=== PATIENT | female | born 1960 | race Caucasian/White ===

== ENCOUNTER 2019-11-23 18:24 | Inpatient (IN) | payer BC, OTHER ==
[~2019-11-23] VITALS: Ht 162.6 cm; Wt 59.4 kg
[2019-11-23] MEDS ORDERED: KETOROLAC TROMETHAMINE 30 MG/ML VIAL IV STA (19:21)
[2019-11-23] MEDS ORDERED: ONDANSETRON HCL INJ 2MG/ML 2ML 2 MG/ML VIAL IV STA (19:22)
[2019-11-23 19:48] LABS: BASOPHILS % 0.2 % (0.0-1.0); HEMATOCRIT 36.5 % (34.2-44.1); HEMOGLOBIN 12.3 g/dL (12.0-16.0); LYMPHOCYTES # (AUTO) 1.1 (1.0-3.2); LYMPHOCYTES % 7.4 % (18.0-39.1); MEAN CORPUSCULAR HEMOGLOBIN 29.9 pg (28-32); MEAN CORPUSCULAR HGB CONC 33.7 g/dL (31-35); MEAN CORPUSCULAR VOLUME 88.6 fL (81-99); MONOCYTES # (AUTO) 0.5 (0.2-0.8); MONOCYTES % 3.1 % (4.4-11.3); NEUTROPHILS # (AUTO) 13.1 (2.1-6.9); PLATELET COUNT 224 x10e3/uL (140-360); RED BLOOD COUNT 4.12 x10e6/uL (3.6-5.1); RED CELL DISTRIBUTION WIDTH 11.8 % (11.7-14.4)
[2019-11-23 19:57] LABS: INR 0.92; PARTIAL THROMBOPLASTIN TIME 25.2 seconds (23.8-35.5); PROTHROMBIN TIME 12.9 seconds (11.9-14.5)
[2019-11-23 19:58] LABS: CLARITY,URINE SL CLOUDY (CLEAR); COLOR,URINE YELLOW (YELLOW); KETONES,URINE 2+ (NEGATIVE); LEUKOCYTE ESTERASE ,URINE NEGATIVE (NEGATIVE); NITRITE,URINE NEGATIVE (NEGATIVE); PROTEIN,URINE DIPSTICK 1+ (NEGATIVE)
[2019-11-23 19:59] LABS: BILIRUBIN,URINE NEGATIVE (NEGATIVE); URINE UROBILINOGEN 0.2 mg/dL (0.2 - 1)
[2019-11-23 20:06] LABS: ALANINE AMINOTRANSFERASE 13 IU/L (0-55); ALBUMIN 4.5 g/dL (3.5-5.0); ALBUMIN/GLOBULIN RATIO 1.4 (0.8-2.0); ALKALINE PHOSPHATASE 68 IU/L (40-150); ANION GAP 19.1 mmol/L (8-16); BLOOD UREA NITROGEN 13 mg/dL (7-26); BUN/CREATININE RATIO 14 (6-25); CARBON DIOXIDE 21 mmol/L (22-29); CHLORIDE 103 mmol/L (98-107); CREATINE KINASE 74 IU/L (29-168); CREATININE, SERUM 0.91 mg/dL (0.57-1.11); EST GLOMERULAR FILTRATION RATE > 60 ML/MIN (60-); GLUCOSE 138 mg/dL (74-118); POTASSIUM 4.1 mmol/L (3.5-5.1); SODIUM 139 mmol/L (136-145)
[2019-11-23 20:20] LABS: BACTERIA,URINE MANY /HPF
[2019-11-23 20:21] LABS: EPITHELIAL CELLS,URINE FEW /LPF
--- NOTE | 2019-11-23 21:01 | Diagnostic Imaging Report ---
EXAMINATION: CT of the abdomen and pelvis without contrast. TECHNIQUE: Spiral CT images of the abdomen and pelvis were performed from the lung bases to the lesser trochanters. No intravenous contrast was given per renal stone protocol. Coronal and sagittal reformatted images were obtained. COMPARISON: None. CLINICAL HISTORY:Bilateral kidney stones, right flank pain for several months DISCUSSION: ABSENCE OF INTRAVENOUS CONTRAST DECREASES SENSITIVITY FOR DETECTION OF FOCAL LESIONS AND VASCULAR PATHOLOGY. ABDOMEN/PELVIS: LOWER THORAX: Lung bases are clear. Bilateral breast implants are partially visualized. HEPATOBILIARY: 7 mm fluid density simple cyst in hepatic segment VIII at the dome (series 3, image 12). 9 mm fluid density simple cyst in hepatic segment (series 3, image 43). No intra or extrahepatic biliary ductal dilation. GALLBLADDER: No radio-opaque stones or sludge. No wall thickening. SPLEEN: No splenomegaly. PANCREAS: No focal masses or ductal dilatation. ADRENALS: No adrenal nodules. KIDNEYS/URETERS: 6-7 mm obstructing calculus in the right UVJ (series 3, image 142), results in moderate right hydroureter, mild periureteral stranding, marked right hydronephrosis and associated mild perinephric stranding. Punctate nonobstructing calculus in the right inferior pole (series 3, image 57). 3-4 mm nonobstructing calculi in the left inferior pole (series 3, image 59). No left ureteral calculi, hydronephrosis or obstruction. No contour abnormalities. PELVIC ORGANS/BLADDER: No bladder calculi or focal lesions. The uterus is unremarkable. No adnexal masses. PERITONEUM/RETROPERITONEUM: No free air or fluid. LYMPH NODES: No intra-abdominal,retroperitoneal, pelvic or inguinal lymphadenopathy. VESSELS: Atherosclerotic calcification of the distal abdominal aorta. GI TRACT: No bowel dilation or evidence of obstruction. No pericolonic inflammatory changes. Appendix is well identified and normal in caliber. Stomach is unremarkable. BONES AND SOFT TISSUES: No aggressive lytic or suspicious focal sclerotic lesions. 5 mm nonaggressive-appearing focal sclerotic lesion in the right acetabulum (series 3, image 129), likely represents a bone island. Soft tissues are grossly unremarkable. IMPRESSION: 1.6-7 mm obstructing calculus in the right UVJ (series 3, image 142), results in moderate right hydroureter, mild periureteral stranding, marked right hydronephrosis and associated mild perinephric stranding. 2. Bilateral nonobstructing calculi, as described. 3. Simple hepatic cysts, which require no further follow-up. Signed by: Dr. Emil Rubi M.D. on 11/23/2019 8:57 PM
[2019-11-23] MEDS ORDERED: CEFTRIAXONE SOD 1 GM/NS 50 ML 50 ML IV ONE (21:45)
[2019-11-23] MEDS ORDERED: [UNRECOGNIZED DRUG - OTHER] IV ONE (21:52)
[2019-11-23] MEDS ORDERED: CEFEPIME IV ONE (21:52)
[2019-11-23] MEDS ORDERED: CEFEPIME HCL 2 GM VIAL ONE (21:52)
[2019-11-23] MEDS ORDERED: CEFTRIAXONE SOD 1 GM VIAL ONE (21:54)
[2019-11-23] MEDS ORDERED: CEFTRIAXONE SOD 1 GM VIAL IV SCH (22:00)
[2019-11-23] MEDS ORDERED: CEFTRIAXONE SOD 1 GM VIAL IM ONE (22:00)
--- NOTE | 2019-11-23 22:10 | Emergency Department Note ---
History of Present Illnes History of Present Illness Chief Complaint: Genitourinary History of Present Illness This is a 59 year old female IGHT FLANK PAIN THAT RADIATES ACROSS BACK AND TO ABD SINCE THIS MORNING PROGRESSIVELY GETTING WORSE TOLD BY DR JONES SHE HAS A KIDNEY STONE THAT WOULD NEED TO BE BROKEN UP C/O DYSURIA AND NAUSEA AND DRY HEAVES . Historian: Patient Arrival Mode: Car Onset (how long ago): hour(s) (9) Location: RIGHT FLANK Quality: PAIN Radiation: Reports back, Reports abdomen Severity: moderate Onset quality: sudden Duration (how long): hour(s) (9) Timing of current episode: constant Progression: waxing and waning Chronicity: new Context: Denies recent illness, Denies recent surgery Relieving factors: none Exacerbating factors: none Associated symptoms: Reports nausea/vomiting Past Medical/Family History Physician Review I have reviewed the patient's past medical and family history. Any updates have been documented here. Past Medical History Recent Fever: No Clinical Suspicion of Infectio: No New/Unexplained Change in Ment: No Past Medical History: Hypertension, Kidney Stones, Anxiety, Hyperlipedemia Other Surgery: BREAST IMPLANT ROTATOR CUFF Social History Smoking Cessation: Never Smoker Alcohol Use: None Any Illegal Drug Use: No TB Exposure/Symptoms: No Physically hurt or threatened: No Other Last Tetanus: UTD Any Pre-Existing Lines (PICC,: No Is patient up to date on immun: Yes Last Flu: UTD Last Pneumovax: DENIES Review of Systems Review of Systems Constitutional: Reports no symptoms EENTM: Reports no symptoms Cardiovascular: Reports no symptoms Respiratory: Reports no symptoms Gastrointestinal: Reports as per HPI Genitourinary: Reports as per HPI Musculoskeletal: Reports no symptoms Integumentary: Reports no symptoms Neurological: Reports no symptoms Psychological: Reports no symptoms Endocrine: Reports no symptoms Hematological/Lymphatic: Reports no symptoms Physical Exam Related Data Allergies: Coded Allergies: No Known Allergies (Unverified , 11/23/19) Triage Vital Signs Vital Signs Date Time Temp Pulse Resp B/P (MAP) Pulse Ox O2 Delivery O2 Flow Rate FiO2 11/23/19 19:07 97.3 54 18 180/88 100 Vital signs reviewed: Yes Physical Exam CONSTITUTIONAL Constitutional: Present well-developed, Present well-nourished, Present distressed (MODEREATE) HENT HENT: Present normocephalic, Present atraumatic, Present oropharynx clear/moist, Present nose normal HENT L/R: Present left ext ear normal, Present right ext ear normal EYES Eyes: Reports PERRL, Reports conjunctivae normal NECK Neck: Present ROM normal PULMONARY Pulmonary: Present effort normal, Present breath sounds normal CARDIOVASCULAR Cardiovascular: Present regular rhythm, Present heart sounds normal, Present capillary refill normal, Present bradycardia (58) GASTROINTESTINAL Abdominal: Present soft, Present nontender, Present bowel sounds normal, Present right CVA tenderness (MODERATE) GENITOURINARY Genitourinary: Present exam deferred SKIN Skin: Present warm, Present dry MUSCULOSKELETAL Musculoskeletal: Present ROM normal NEUROLOGICAL Neurological: Present alert, Present oriented x 3, Present no gross motor or sensory deficits PSYCHOLOGICAL Psychological: Present mood/affect normal, Present judgement normal Results Laboratory Result Diagram: 11/23/19184311/23/191843 Laboratory Laboratory Tests Test 11/23/19 18:44 White Blood Count 14.68 x10e3/uL (4.8-10.8) Red Blood Count 4.12 x10e6/uL (3.6-5.1) Hemoglobin 12.3 g/dL (12.0-16.0) Hematocrit 36.5 % (34.2-44.1) Mean Corpuscular Volume 88.6 fL (81-99) Mean Corpuscular Hemoglobin 29.9 pg (28-32) Mean Corpuscular Hemoglobin Concent 33.7 g/dL (31-35) Red Cell Distribution Width 11.8 % (11.7-14.4) Platelet Count 224 x10e3/uL (140-360) Neutrophils (%) (Auto) 89.0 % (38.7-80.0) Lymphocytes (%) (Auto) 7.4 % (18.0-39.1) Monocytes (%) (Auto) 3.1 % (4.4-11.3) Eosinophils (%) (Auto) 0.0 % (0.0-6.0) Basophils (%) (Auto) 0.2 % (0.0-1.0) Neutrophils # (Auto) 13.1 (2.1-6.9) Lymphocytes # (Auto) 1.1 (1.0-3.2) Monocytes # (Auto) 0.5 (0.2-0.8) Eosinophils # (Auto) 0.0 (0.0-0.4) Basophils # (Auto) 0.0 (0.0-0.1) Absolute Immature Granulocyte (auto 0.04 x10e3/uL (0-0.1) Prothrombin Time 12.9 seconds (11.9-14.5) Prothromb Time International Ratio 0.92 Activated Partial Thromboplast Time 25.2 seconds (23.8-35.5) Urine Color Yellow (YELLOW) Urine Clarity Sl cloudy (CLEAR) Urine pH 7.5 (5 - 7) Urine Specific [place] 1.025 (1.010-1.025) Urine Protein 1+ (NEGATIVE) Urine Glucose (UA) Negative (NEGATIVE) Urine Ketones 2+ (NEGATIVE) Urine Blood Trace (NEGATIVE) Urine Nitrite Negative (NEGATIVE) Urine Bilirubin Negative (NEGATIVE) Urine Urobilinogen 0.2 mg/dL (0.2 - 1) Urine Leukocyte Esterase Negative (NEGATIVE) Urine RBC 6-10 /HPF (0-5) Urine WBC 11-20 /HPF (0-5) Urine Epithelial Cells Few /LPF (NONE) Urine Bacteria Many /HPF (NONE) Sodium Level 139 mmol/L (136-145) Potassium Level 4.1 mmol/L (3.5-5.1) Chloride Level 103 mmol/L (98-107) Carbon Dioxide Level 21 mmol/L (22-29) Anion Gap 19.1 mmol/L (8-16) Blood Urea Nitrogen 13 mg/dL (7-26) Creatinine 0.91 mg/dL (0.57-1.11) Estimat Glomerular Filtration Rate > 60 ML/MIN (60-) BUN/Creatinine Ratio 14 (6-25) Glucose Level 138 mg/dL (74-118) Calcium Level 10.0 mg/dL (8.4-10.2) Total Bilirubin 0.5 mg/dL (0.2-1.2) Aspartate Amino Transf (AST/SGOT) 17 IU/L (5-34) Alanine Aminotransferase (ALT/SGPT) 13 IU/L (0-55) Alkaline Phosphatase 68 IU/L (40-150) Creatine Kinase 74 IU/L (29-168) Creatine Kinase MB 0.70 ng/mL (0-5.0) Troponin I 0.009 ng/mL (0-0.300) Total Protein 7.7 g/dL (6.5-8.1) Albumin 4.5 g/dL (3.5-5.0) Globulin 3.2 g/dL (2.3-3.5) Albumin/Globulin Ratio 1.4 (0.8-2.0) Lab results reviewed: Yes Imaging Imaging results reviewed: Yes Impressions EXAMINATION: CT of the abdomen and pelvis without contrast. TECHNIQUE: Spiral CT images of the abdomen and pelvis were performed from the lung bases to the lesser trochanters. No intravenous contrast was given per renal stone protocol. Coronal and sagittal reformatted images were obtained. COMPARISON: None. CLINICAL HISTORY:Bilateral kidney stones, right flank pain for several months DISCUSSION: ABSENCE OF INTRAVENOUS CONTRAST DECREASES SENSITIVITY FOR DETECTION OF FOCAL LESIONS AND VASCULAR PATHOLOGY. ABDOMEN/PELVIS: LOWER THORAX: Lung bases are clear. Bilateral breast implants are partially visualized. HEPATOBILIARY: 7 mm fluid density simple cyst in hepatic segment VIII at the dome (series 3, image 12). 9 mm fluid density simple cyst in hepatic segment (series 3, image 43). No intra or extrahepatic biliary ductal dilation. GALLBLADDER: No radio-opaque stones or sludge. No wall thickening. SPLEEN: No splenomegaly. PANCREAS: No focal masses or ductal dilatation. ADRENALS: No adrenal nodules. KIDNEYS/URETERS: 6-7 mm obstructing calculus in the right UVJ (series 3, image 142), results in moderate right hydroureter, mild periureteral stranding, marked right hydronephrosis and associated mild perinephric stranding. Punctate nonobstructing calculus in the right inferior pole (series 3, image 57). 3-4 mm nonobstructing calculi in the left inferior pole (series 3, image 59). No left ureteral calculi, hydronephrosis or obstruction. No contour abnormalities. PELVIC ORGANS/BLADDER: No bladder calculi or focal lesions. The uterus is unremarkable. No adnexal masses. PERITONEUM/RETROPERITONEUM: No free air or fluid. LYMPH NODES: No intra-abdominal,retroperitoneal, pelvic or inguinal lymphadenopathy. VESSELS: Atherosclerotic calcification of the distal abdominal aorta. GI TRACT: No bowel dilation or evidence of obstruction. No pericolonic inflammatory changes. Appendix is well identified and normal in caliber. Stomach is unremarkable. BONES AND SOFT TISSUES: No aggressive lytic or suspicious focal sclerotic lesions. 5 mm nonaggressive-appearing focal sclerotic lesion in the right acetabulum (series 3, image 129), likely represents a bone island. Soft tissues are grossly unremarkable. IMPRESSION: 1.6-7 mm obstructing calculus in the right UVJ (series 3, image 142), results in moderate right hydroureter, mild periureteral stranding, marked right hydronephrosis and associated mild perinephric stranding. 2. Bilateral nonobstructing calculi, as described. 3. Simple hepatic cysts, which require no further follow-up. Signed by: Dr. Josselin Rubi M.D. on 11/23/2019 8:57 PM Dictated By: JOSSELIN RUBI MD 56 Transcribed By: ABA on 11/23/192056 COPY TO: LISETTE CALDWELL MD~ Assessment & Plan Medical Decision Making MDM Patient with right flank pain history of kidney stones. CBC, CMP, UA, CT abdomen and pelvis ordered to eval for UTI, ureterolithiasis, pyelonephritis, obstructive uropathy, renal insufficiency, electrolyte abnormality Patient found to have a 67 mm stone in the distal right UVJ with obstruction causing moderate [place] patient was found to have UTI. Rocephin 1 g IV ordered. Toradol 30 mg IV ordered. About I spoke with Dr. Palacios and Dr. Jones patient be admitted inpatient nothing by mouth after midnight started on Rocephin. Assessment & Plan Final Impression: (1) Ureterolithiasis (2) Hydronephrosis (3) UTI (urinary tract infection) Depart Disposition: ADMITTED Last Vital Signs Date Time Temp Pulse Resp B/P (MAP) Pulse Ox O2 Delivery O2 Flow Rate FiO2 11/23/19 21:45 97.3 89 18 174/99 97 Medications in the ED Ketorolac Tromethamine 30 mg ONCE STAT IV Last administered on 11/23/19at 19:54; Admin Dose 30 MG; Start 11/23/19 at 19:21; Stop 11/23/19 at 19:42; Status DC Ondansetron HCl 4 mg NOW STAT IV Last administered on 11/23/19at 19:54; Admin Dose 4 MG; Start 11/23/19 at 19:22; Stop 11/23/19 at 19:42; Status DC Ceftriaxone Sodium 50 ml @ 100 mls/hr ONCE ONCE IV ; Start 11/23/19 at 21:45; Stop 11/23/19 at 21:52; Status DC Cefepime HCl STK-MED ONCE .ROUTE ; Start 11/23/19 at 21:52; Stop 11/23/19 at 21:46; Status DC Cefepime HCl 0 ml @ ud STK-MED ONCE IV ; Start 11/23/19 at 21:52; Stop 11/23/19 at 21:46; Status DC Ceftriaxone Sodium 1 gm STK-MED ONCE .ROUTE ; Start 11/23/19 at 21:54; Stop 11/23/19 at 21:48; Status DC Ceftriaxone Sodium 1 gm ONCE ONCE IM ; Start 11/23/19 at 22:00; Stop 11/23/19 at 21:54; Status DC Ceftriaxone Sodium 1 gm ONCE IV Last administered on 11/23/19at 21:54; Admin Dose 1 GM; Start 11/23/19 at 22:00; Stop 11/30/19 at 21:59; Status LISETTE MIGUEL MD Nov 23, 2019 22:10
[2019-11-24] VITALS (9 sets, daily range): BP systolic 115–150; BP diastolic 61–72
[2019-11-24] MEDS ORDERED: HYDROMORPHONE 1MG/1ML INJ IV PRN
[2019-11-24] MEDS ORDERED: ONDANSETRON HCL INJ 2MG/ML 2ML 2 MG/ML VIAL IV PRN
[2019-11-24] MEDS: SODIUM CHLORIDE 0.9% 1000ML 1,000 ML IV SCH ×5 (00:40→18:50)
[2019-11-24] MEDS ORDERED: MULTIVITAMINS1 EAC7 PO (01:42)
[2019-11-24] MEDS ORDERED: [UNRECOGNIZED DRUG - OTHER] PO (01:42)
[2019-11-24] MEDS ORDERED: TYLENOL WITH C1 EACH PO (01:42)
[2019-11-24] MEDS ORDERED: APPLE CIDER VI300 MG PO (01:42)
[2019-11-24] MEDS ORDERED: SERTRALINE HCL50 MG PO (01:42)
[2019-11-24] MEDS ORDERED: ALPRAZOLAM0.5 M1 PO (01:42)
[2019-11-24] MEDS ORDERED: PEPCID AC10 MG PO (01:42)
[2019-11-24] MEDS ORDERED: ZOFRAN4 MG PO (01:42)
--- NOTE | 2019-11-24 07:48 | NUR ---
ASSUMED CARE. AAOX3. ACYANOTIC. RESTING IN BED. NO DISTRESS NOTED. CALL LIGHT IN REACH. SIDE RAILS UP X2. BED LOW.
[2019-11-24 08:32] LABS: BASOPHILS % 0.2 % (0.0-1.0); EOSINOPHILS % 0.2 % (0.0-6.0); HEMATOCRIT 32.5 % (34.2-44.1); HEMOGLOBIN 10.8 g/dL (12.0-16.0); LYMPHOCYTES # (AUTO) 1.8 (1.0-3.2); LYMPHOCYTES % 21.8 % (18.0-39.1); MEAN CORPUSCULAR HEMOGLOBIN 29.3 pg (28-32); MEAN CORPUSCULAR HGB CONC 33.2 g/dL (31-35); MEAN CORPUSCULAR VOLUME 88.3 fL (81-99); MONOCYTES # (AUTO) 0.6 (0.2-0.8); NEUTROPHILS # (AUTO) 5.6 (2.1-6.9); NEUTROPHILS % 69.6 % (38.7-80.0); PLATELET COUNT 176 x10e3/uL (140-360); RED BLOOD COUNT 3.68 x10e6/uL (3.6-5.1); RED CELL DISTRIBUTION WIDTH 12.1 % (11.7-14.4)
[2019-11-24 08:52] LABS: ALANINE AMINOTRANSFERASE 10 IU/L (0-55); ALBUMIN 3.7 g/dL (3.5-5.0); ALBUMIN/GLOBULIN RATIO 1.3 (0.8-2.0); ALKALINE PHOSPHATASE 60 IU/L (40-150); ANION GAP 13.8 mmol/L (8-16); BLOOD UREA NITROGEN 13 mg/dL (7-26); BUN/CREATININE RATIO 16 (6-25); CALCIUM 9.2 mg/dL (8.4-10.2); CARBON DIOXIDE 23 mmol/L (22-29); CHLORIDE 109 mmol/L (98-107); CREATININE, SERUM 0.81 mg/dL (0.57-1.11); EST GLOMERULAR FILTRATION RATE > 60 ML/MIN (60-); GLUCOSE 147 mg/dL (74-118); POTASSIUM 3.8 mmol/L (3.5-5.1); SODIUM 142 mmol/L (136-145)
[2019-11-24] MEDS ORDERED: BISACODYL 10 MG SUPP PR PRN (11:00)
[2019-11-24] MEDS: POLYETHYLENE GLYCOL 3350 17 GM PACK PO SCH ×2 (11:41→17:23)
[2019-11-24] MEDS: DOCUSATE SODIUM 100 MG CAP PO SCH ×2 (11:41→17:23)
--- NOTE | 2019-11-24 18:46 | NUR ---
WALKING ROUNDS PERFORMED, RECEIVED PT LAYING SEMI FOWLERS IN BED, AAOX3, RR EVEN AND NON-LABORED, ON ROOM AIR. NO S/SX OF DISTRESS NOTED. LEFT PT LAYING SEMI FOWLERS IN BED, BED IN LOW LOCKED POSITION, SIDE RAILS UPX2, CALL LIGHT AND PHONE WITHIN REACH.
[2019-11-24] MEDS: CEFTRIAXONE SOD 1 GM/NS 50 ML 50 ML IV SCH (20:22)
--- NOTE | 2019-11-24 23:59 | NUR ---
NOTIFIED RESPIRATORY OF NEED FOR EKG.
[2019-11-25] VITALS (8 sets, daily range): BP systolic 136–170; BP diastolic 70–85
[2019-11-25] MEDS: SODIUM CHLORIDE 0.9% 1000ML 1,000 ML IV SCH ×2 (03:47→15:29)
[2019-11-25 05:41] LABS: BASOPHILS % 0.3 % (0.0-1.0); EOSINOPHILS # (AUTO) 0.1 (0.0-0.4); EOSINOPHILS % 1.3 % (0.0-6.0); HEMATOCRIT 32.4 % (34.2-44.1); HEMOGLOBIN 10.4 g/dL (12.0-16.0); LYMPHOCYTES # (AUTO) 2.1 (1.0-3.2); LYMPHOCYTES % 33.2 % (18.0-39.1); MEAN CORPUSCULAR HEMOGLOBIN 28.9 pg (28-32); MEAN CORPUSCULAR HGB CONC 32.1 g/dL (31-35); MONOCYTES # (AUTO) 0.6 (0.2-0.8); NEUTROPHILS # (AUTO) 3.5 (2.1-6.9); NEUTROPHILS % 55.9 % (38.7-80.0); PLATELET COUNT 174 x10e3/uL (140-360); RED CELL DISTRIBUTION WIDTH 12.2 % (11.7-14.4)
[2019-11-25 05:51] LABS: BLOOD UREA NITROGEN 9 mg/dL (7-26); BUN/CREATININE RATIO 13 (6-25); CALCIUM 8.4 mg/dL (8.4-10.2); CARBON DIOXIDE 24 mmol/L (22-29); CHLORIDE 110 mmol/L (98-107); CHOL/HDL RATIO 4.7 (3.0-3.6); CHOLESTEROL 227 MD/DL (0-199); CREATININE, SERUM 0.72 mg/dL (0.57-1.11); EST GLOMERULAR FILTRATION RATE > 60 ML/MIN (60-); GLUCOSE 99 mg/dL (74-118); HDL CHOLESTEROL 48 MG/DL (40-60); LDL CHOLESTEROL 160 MG/DL (60-130); MAGNESIUM 1.8 MG/DL (1.3-2.1); PHOSPHORUS 2.4 MG/DL (2.3-4.7); SODIUM 142 mmol/L (136-145); TRIGLYCERIDES 93 MG/DL (0-149)
[2019-11-25 05:59] LABS: THYROID STIMULATING HORMONE 3.982 uIU/mL (0.350-4.940)
--- NOTE | 2019-11-25 06:01 | NUR ---
CONSULTATION CALLED FOR MD SANCHEZ. SPOKE WITH MD Kaitlin LEROY. NO NEW ORDERS RECEIVED.
--- NOTE | 2019-11-25 07:29 | NUR ---
AAOX3. ASSUMED CARE. ACYANOTIC. RESTING IN BED. NO DISTRESS NOTED. CALL LIGHT IN REACH. SIDE RAILS UP X2. BED LOW.
[2019-11-25] MEDS: POLYETHYLENE GLYCOL 3350 17 GM PACK PO SCH ×2 (08:27→17:00)
[2019-11-25] MEDS: DOCUSATE SODIUM 100 MG CAP PO SCH ×2 (08:27→17:00)
[2019-11-25] MEDS ORDERED: HYDRALAZINE HCL 20 MG/ML VIAL IV PRN (08:30)
[2019-11-25] MEDS ORDERED: ACETAMINOPHEN 325 MG TAB PO PRN (08:30)
[2019-11-25] MEDS ORDERED: ALPRAZOLAM 0.5 MG TAB PO PRN (08:30)
[2019-11-25] MEDS: FAMOTIDINE 20 MG/2 ML VIAL IV SCH ×2 (09:41→17:00)
--- NOTE | 2019-11-25 10:08 | Consultation ---
DATE OF CONSULTATION: Cardiology Consultation REASON FOR CONSULTATION: Cardiovascular medical management. HISTORY OF PRESENT ILLNESS: This is a 59-year-old woman with a history of mitral valve prolapse, anxiety, family history of cardiovascular medical problems, and nephrolithiasis, who presented with an obstructive ureter stone. She reported flank pain that was [id number] in intensity, progressively worsening over the last few days to weeks. She denies any cardiovascular symptoms. Specifically, she denies any typical angina, shortness of breath, or palpitations currently. She has been evaluated by display decorator in the past and her echocardiogram showed reportedly mitral valve prolapse. REVIEW OF SYSTEMS: A 12-point review of system was conducted, is negative except as stated above in the HPI. PAST MEDICAL HISTORY: As stated above in the HPI. PAST SURGICAL HISTORY: None recent. PAST FAMILY HISTORY: Father with heart disease. Brother with heart disease. SOCIAL HISTORY: No illicit drug, alcohol, or tobacco use. ALLERGIES: NO KNOWN DRUG ALLERGIES. MEDICATIONS: See medication reconciliation form. PHYSICAL EXAMINATION: VITAL SIGNS: Temperature is 97.9, heart rate is 55, respirations are 17, blood pressure is 136/74, and oxygen saturation 96% on room air. GENERAL: She is well-appearing, well built, in no apparent distress. Alert orient x3. HEAD: Normocephalic and atraumatic. EYES: The extraocular muscles are intact. Conjunctiva clear. NECK: No JVD. No bruits. CARDIOVASCULAR: She has regular rate and rhythm. No murmurs. LUNGS: Clear to auscultation. ABDOMEN: Soft, nontender, and nondistended. EXTREMITIES: No edema. VASCULAR: 2+ pulses. SKIN: Warm, dry, and intact. NEUROLOGIC: No focal deficits noted. DIAGNOSTIC DATA: A 12-lead electrocardiogram showed sinus bradycardia. 2D echocardiogram showed preserved left ventricular systolic function with no significant valvular abnormalities. IMPRESSION: 1. Preoperative cardiovascular risk assessment. 2. Nephrolithiasis with hydronephrosis. 3. Sinus bradycardia. 4. Anxiety. RECOMMENDATIONS: This patient is asymptomatic from a cardiovascular standpoint. She has greater than 4 metabolic equivalents. She has other issues to undergo an intermediate risk surgery. She is very active and has no active cardiac conditions or clinical risk factors. Her electrocardiogram and echocardiogram remain roughly within normal limits. She may proceed with her planned surgery with a low cardiac risk. Shimon DO SCOTT Mai/AL[place] /[id number]
--- NOTE | 2019-11-25 21:00 | NUR ---
Patient took a shower.
[2019-11-25] MEDS: CEFTRIAXONE SOD 1 GM/NS 50 ML 50 ML IV SCH (21:06)
[2019-11-26] VITALS (8 sets, daily range): BP systolic 132–175; BP diastolic 73–90
[2019-11-26] MEDS: SODIUM CHLORIDE 0.9% 1000ML 1,000 ML IV SCH ×3 (01:40→17:07)
[2019-11-26 05:42] LABS: BASOPHILS % 0.6 % (0.0-1.0); EOSINOPHILS # (AUTO) 0.1 (0.0-0.4); HEMATOCRIT 30.6 % (34.2-44.1); HEMOGLOBIN 10.2 g/dL (12.0-16.0); LYMPHOCYTES % 39.3 % (18.0-39.1); MEAN CORPUSCULAR HEMOGLOBIN 29.4 pg (28-32); MEAN CORPUSCULAR HGB CONC 33.3 g/dL (31-35); MEAN CORPUSCULAR VOLUME 88.2 fL (81-99); MONOCYTES # (AUTO) 0.4 (0.2-0.8); MONOCYTES % 8.9 % (4.4-11.3); NEUTROPHILS # (AUTO) 2.4 (2.1-6.9); PLATELET COUNT 166 x10e3/uL (140-360); RED BLOOD COUNT 3.47 x10e6/uL (3.6-5.1)
[2019-11-26 06:10] LABS: ALANINE AMINOTRANSFERASE 12 IU/L (0-55); ALBUMIN 3.4 g/dL (3.5-5.0); ALBUMIN/GLOBULIN RATIO 1.2 (0.8-2.0); ALKALINE PHOSPHATASE 52 IU/L (40-150); ANION GAP 12.6 mmol/L (8-16); BLOOD UREA NITROGEN 6 mg/dL (7-26); BUN/CREATININE RATIO 9 (6-25); CALCIUM 8.5 mg/dL (8.4-10.2); CARBON DIOXIDE 24 mmol/L (22-29); CHLORIDE 109 mmol/L (98-107); CREATININE, SERUM 0.67 mg/dL (0.57-1.11); EST GLOMERULAR FILTRATION RATE > 60 ML/MIN (60-); GLUCOSE 94 mg/dL (74-118); MAGNESIUM 1.8 MG/DL (1.3-2.1); POTASSIUM 3.6 mmol/L (3.5-5.1); SODIUM 142 mmol/L (136-145)
[2019-11-26] MEDS: POLYETHYLENE GLYCOL 3350 17 GM PACK PO SCH ×2 (09:25→16:30)
[2019-11-26] MEDS: FAMOTIDINE 20 MG/2 ML VIAL IV SCH ×2 (09:25→16:30)
[2019-11-26] MEDS: DOCUSATE SODIUM 100 MG CAP PO SCH ×2 (09:25→16:30)
[2019-11-26] MEDS ORDERED: ONDANSETRON HCL 4 MG ORAL DISINTEGRATING TAB PO PRN (11:45)
--- NOTE | 2019-11-26 11:57 | Diagnostic Imaging Report ---
EXAMINATION: ABDOMEN-1VIEW (KUB) INDICATION: Renal calculi COMPARISON: CT abdomen and pelvis 11/23/2019 FINDINGS: Left lower pole renal calculi measure up to 3 mm. 6 mm calcific density in the right pelvis likely corresponds with the ureterovesical junction calculus seen on the CT of 11/23/2019. The 2 mm right renal calculus seen on the CT is not well visualized on this KUB. Nonobstructive bowel gas pattern. No free air. No acute osseous injury. IMPRESSION: 6 mm calcific density in the right pelvis likely corresponds with the ureterovesical junction calculus seen on the prior CT. 3 mm left lower pole renal calculi. Signed by: Kim Morrissey MD on 11/26/2019 11:53 AM
[2019-11-26] MEDS ORDERED: ACETAMINOPHEN/CODEINE 300MG - 30MG TAB PO PRN (13:15)
--- NOTE | 2019-11-26 15:36 | Progress Note ---
DATE: Cardiology Progress Note SUBJECTIVE: The patient is feeling better. Her flank pain has improved, however, she feels like she has urinary tract infection. No chest pain or shortness of breath. OBJECTIVE: VITAL SIGNS: Temperature is 98, heart rate 55, respirations 16, blood pressure is 135/75, and oxygen saturation is 100% on room air. GENERAL: Well-appearing, in no apparent distress. CARDIOVASCULAR: Regular rate and rhythm. LUNGS: Clear to auscultation. ABDOMEN: Soft, nontender, and nondistended. EXTREMITIES: No clubbing, cyanosis, or edema. MEDICATIONS: Reviewed. LABORATORY DATA: Reviewed. LDL is 160. IMPRESSION: 1. Preoperative cardiovascular risk assessment. 2. Nephrolithiasis. 3. Sinus bradycardia. 4. Anxiety. 5. Hyperlipidemia. RECOMMENDATIONS: The patient is asymptomatic from a cardiovascular standpoint. She may proceed with her planned surgery with low risk. Her echocardiogram and 12-lead electrocardiogram within normal limits. Her LDLs are elevated. We will need to start her statin therapy. Shimon Mai DO BM/MODL /[id number]
--- NOTE | 2019-11-26 17:01 | History and Physical ---
PRIMARY CARE PHYSICIAN: Dr. Ismael Jones. CONSULTING PHYSICIANS: 1. Dr. Ismael Jones. 2. Dr. Lund with Cardiology. CHIEF COMPLAINT: Kidney stone. HISTORY OF PRESENT ILLNESS: The patient is a 59-year-old female, admitted with a kidney stone. The stones began in June and the patient has had several kidney stones in the past with the 1st one being in the year 1999 while . Initially in June, she feared going to the doctor's office as she was worried about the COVID pandemic. The patient reported flank pain that was moderate to severe in intensity and became progressively worse over the last few days to weeks. PAST MEDICAL HISTORY: Nephrolithiasis, panic disorder, anxiety, hiatal hernia, GERD, seasonal allergies, hyperlipidemia, mitral valve prolapse, and hypertension. PAST SURGICAL HISTORY: Left rotator cuff repair, breast implants, and tummy tuck in 2016. PAST FAMILY HISTORY: Father had pacemaker placement, kidney stones, four heart attacks. Her brother had kidney stones and from CHF after surgery. SOCIAL HISTORY: The patient denies any tobacco or illicit drug use. She previously drank some alcohol and has since quit. She did not consider herself an alcoholic. ALLERGIES: NO KNOWN DRUG ALLERGIES. THE PATIENT REPORTEDLY TOOK METOPROLOL FOR 2 WEEKS FOR HYPERTENSION, BUT THE METOPROLOL CAUSED THE SIDE EFFECTS OF MALAISE, DIARRHEA, AND UNABLE TO FUNCTION. THEREFORE, SHE HAS STOPPED USING IT. HOME MEDICATIONS: Tylenol No. 3, Pepcid, multivitamin, sertraline, cider vinegar tablet, CholestaCare, and Zofran. REVIEW OF SYSTEMS: A 14-point review of systems completed. Generally, all systems are negative except for the following: She has right flank pain, right lower quadrant abdominal pain 1/10 on a scale of 0-10. Denies hematuria. She does have urgency. She has mild anxiety. She has had nausea and vomiting at work on Saturday, 11/22, had diarrhea this past weekend. Last bowel movement 11/23. CURRENT MEDICATIONS: Ceftriaxone every 24 hours. Normal saline IV fluids at 125 mL an hour, Dilaudid 1 mg IV every 3 hours, Zofran p.r.n.. OBJECTIVE: VITAL SIGNS: Temperature 97.8, heart rate 50, blood pressure 122/66, respirations 19, and oxygen saturation 100% on room air. Height 5 feet 4 inches. Weight 131 pounds. BMI 22.48. GENERAL: She is well-appearing, in no apparent distress. Alert and oriented x4. HEAD: Normocephalic and atraumatic. Eyes, full. EARS, NOSE, AND THROAT: EOMI. Conjunctivae clear. NECK: Supple. No JVD. No bruits. LUNGS: Clear to auscultation. Respiratory pattern even and nonlabored. CARDIOVASCULAR: Regular rate and rhythm. No murmurs or bradycardia. ABDOMEN: Bowel sounds positive. Soft, nontender. EXTREMITIES: No pitting edema. No clubbing, cyanosis, or marked swelling. No signs of DVT. NEUROLOGICAL: GCS 15, nonfocal. DIAGNOSTIC STUDIES/LABORATORY: On admission, WBCs 14.68, hemoglobin 12.3, hematocrit 36.5, platelets 224. Sodium 139, potassium 4.1, chloride 103, CO2 of 21, anion gap 19.1, BUN 13, creatinine 0.91, estimated GFR greater than 60, glucose 138, calcium 10, total bilirubin 0.5, AST 17, ALT 13, and alkaline phosphatase 68. Creatine kinase 74, CK-MB 0.7, troponin I 0.009. Total protein 7.7, albumin 4.5. PT 12.9, INR 0.92, and PTT 25.2. Urinalysis showed slightly cloudy clarity, specific gravity 1.025, 1+ protein, 2+, ketones, trace amount of blood, negative for leukocyte esterase, negative for nitrites, RBC 6-10, WBC 11-20, many bacteria. Urine culture with no preliminary report at this point. Today on 11/23, WBCs 8.03, hemoglobin 10.8, hematocrit 32.5, platelets 176. Sodium 142, potassium 3.8, chloride 109, CO2 23, anion gap 13.8, BUN 13, creatinine 0.81, estimated GFR greater than 60, glucose 147, calcium 9.2, total bilirubin 0.5, AST 13, ALT 10, alkaline phosphatase 60, total protein 6.5, and albumin 3.7. Serology; Katz virus PCR not detected. IMAGING STUDIES: On 11/22, CT of the abdomen and pelvis showed a 6-7 mm obstructing calculus in the right UVJ. Results and moderate right hydroureter. Mild terrance ureteral stranding marketed right hydronephrosis and associated mild perinephric stranding, bilateral nonobstructive calculi simple hepatic cyst. Per telemetry in sinus bradycardia, heart rate 58. On 11/23, 12-lead EKG showed sinus bradycardia with a heart rate of 59. Echocardiogram ordered. ASSESSMENT AND PLAN: 1. Right flank pain, nephrolithiasis with obstructive ureter stone and hydronephrosis with recent nausea, vomiting, and diarrhea. Continue on IV Rocephin and IV hydration. Nephrology has been consulted. Vomiting and diarrhea person have resolved. Pain control with Dilaudid. 2. Leukocytosis with possible acute urinary tract infection. Follow up on final urine culture and sensitivity results. Continue Rocephin and IV fluid hydration. 3. Controlled hypertension. Resume home antihypertensives. Blood pressure 122/66. 4. Hyperlipidemia. Assess lipid panel. Resume any home statin. 5. Anxiety with underlying panic disorder, monitor. Resume sertraline. 6. Asymptomatic sinus bradycardia with family history of the pacemaker in the father and in need of preoperative cardiovascular risk assessment. Cardiology has been consulted. Echocardiogram for tomorrow. 7. Gastroesophageal reflux disease/prophylaxis. Pepcid. Billing code 13090. Time spent 60 minutes. Dictated by Ulises Mascorro NP MD MORRIS Sumner/[place] /[id number]
--- NOTE | 2019-11-26 19:00 | NUR ---
consent signed for procedure.
--- NOTE | 2019-11-26 19:48 | NUR ---
report given to coming nurse, walking rounds complete
[2019-11-26] MEDS: CEFTRIAXONE SOD 1 GM/NS 50 ML 50 ML IV SCH (20:40)
--- NOTE | 2019-11-26 22:15 | NUR ---
PATIENT REPORTS TAKING HOME MED ALPRAZOLAM AT APPROXIMATELY 1800. HOME MEDICATIONS CONFISCATED AND PLACED IN PATIENT BIN IN MED ROOM. PATIENT EDUCATED THAT MEDS CAN BE TAKEN HOME AT DISCHARGE. VERBALIZED UNDERSTANDING.
[2019-11-27] VITALS: BP 140/66
[2019-11-27] MEDS: SODIUM CHLORIDE 0.9% 1000ML 1,000 ML IV SCH ×3 (01:49→16:00)
[2019-11-27 04:00] VITALS: BP 148/76
[2019-11-27 06:46] LABS: BASOPHILS % 0.4 % (0.0-1.0); EOSINOPHILS # (AUTO) 0.1 (0.0-0.4); EOSINOPHILS % 1.4 % (0.0-6.0); HEMATOCRIT 32.3 % (34.2-44.1); HEMOGLOBIN 10.7 g/dL (12.0-16.0); LYMPHOCYTES # (AUTO) 1.8 (1.0-3.2); LYMPHOCYTES % 35.2 % (18.0-39.1); MEAN CORPUSCULAR HEMOGLOBIN 29.7 pg (28-32); MEAN CORPUSCULAR HGB CONC 33.1 g/dL (31-35); MEAN CORPUSCULAR VOLUME 89.7 fL (81-99); MONOCYTES # (AUTO) 0.4 (0.2-0.8); MONOCYTES % 7.6 % (4.4-11.3); NEUTROPHILS # (AUTO) 2.7 (2.1-6.9); NEUTROPHILS % 55.2 % (38.7-80.0); PLATELET COUNT 176 x10e3/uL (140-360); RED CELL DISTRIBUTION WIDTH 11.9 % (11.7-14.4)
--- NOTE | 2019-11-27 07:16 | NUR ---
REPORT GIVEN TO DAYSHIFT NURSE. PATIENT IN STABLE CONDITION. BED LOCKED AND IN LOW POSITION. CALL LIGHT WITHIN REACH. NO SIGNS IV INFILTRATION.
[2019-11-27 07:21] LABS: ALANINE AMINOTRANSFERASE 14 IU/L (0-55); ALBUMIN 3.7 g/dL (3.5-5.0); ALBUMIN/GLOBULIN RATIO 1.2 (0.8-2.0); ALKALINE PHOSPHATASE 52 IU/L (40-150); ANION GAP 9.8 mmol/L (8-16); BLOOD UREA NITROGEN 9 mg/dL (7-26); BUN/CREATININE RATIO 13 (6-25); CALCIUM 8.6 mg/dL (8.4-10.2); CARBON DIOXIDE 28 mmol/L (22-29); CHLORIDE 108 mmol/L (98-107); EST GLOMERULAR FILTRATION RATE > 60 ML/MIN (60-); GLUCOSE 96 mg/dL (74-118); MAGNESIUM 1.9 MG/DL (1.3-2.1); POTASSIUM 3.8 mmol/L (3.5-5.1); SODIUM 142 mmol/L (136-145)
[2019-11-27 08:00] VITALS: BP 170/80
[2019-11-27] MEDS: POLYETHYLENE GLYCOL 3350 17 GM PACK PO SCH ×2 (09:00→17:00)
[2019-11-27] MEDS ORDERED: MULTIVITAMINS/MINERALS TAB PO SCH (09:00)
[2019-11-27] MEDS: DOCUSATE SODIUM 100 MG CAP PO SCH ×2 (09:00→17:00)
[2019-11-27] MEDS ORDERED: SERTRALINE HCL 50 MG TAB PO SCH (09:00)
[2019-11-27] MEDS: FAMOTIDINE 20 MG/2 ML VIAL IV SCH ×2 (11:25→17:00)
[2019-11-27 11:38] VITALS: BP 170/80
[2019-11-27 12:00] VITALS: BP 177/81
[2019-11-27] MEDS ORDERED: LIDOCAINE HCL 2% LOCAL INJ 5 ML SDV VIAL INJ ONE (14:28)
[2019-11-27] MEDS ORDERED: DEXAMETHASONE SOD PHOS INJ 4 MG/ML VIAL ONE (14:28)
[2019-11-27] MEDS ORDERED: PROPOFOL IV EMULSION 10 MG/ML 20 ML VIAL ONE (14:28)
[2019-11-27] MEDS ORDERED: ONDANSETRON HCL INJ 2MG/ML 2ML 2 MG/ML VIAL ONE (14:28)
[2019-11-27] MEDS ORDERED: SEVOFLURANE INHAL SOLN 250 ML PEN BTL ONE (14:28)
[2019-11-27] MEDS ORDERED: MIDAZOLAM HCL 2 MG/2 ML VIAL ONE (14:48)
[2019-11-27] MEDS ORDERED: IOPAMIDOL 300MG/ML 50ML INFUS..BTL IV ONE (17:07)
[2019-11-27] MEDS ORDERED: B&O 60MG R/S 60 MG SUPP PR ONE (17:07)
[2019-11-27 18:25] VITALS: BP 155/82
[2019-11-27] MEDS ORDERED: FENTANYL CITRATE/PF 100MCG/2 ML INJ ONE (19:59)
--- NOTE | 2019-11-27 20:00 | NUR ---
PATIENT DISCHARGED HOME. ESCORTED BY SON TO PRIVATE VEHICLE. AAOX3. PATIENT IN STABLE CONDITION. IV TO L AC D/C CATHETER TIP INTACT. [employer]I DRESSING APPLIED.
--- NOTE | 2019-11-27 21:36 | Discharge Summary ---
ADMISSION DIAGNOSES: Right ureterovesical junction obstructing calculus with moderate right hydroureter and hydronephrosis, hypertension, hyperlipidemia, anxiety, asymptomatic sinus bradycardia. DISCHARGE DIAGNOSES: Right ureterovesical junction obstructing calculus with moderate right hydroureter and hydronephrosis, hypertension, hyperlipidemia, anxiety, asymptomatic sinus bradycardia. HISTORY: Nephrolithiasis, panic disorder, anxiety, hiatal hernia, GERD, seasonal allergies, hyperlipidemia, mitral valve prolapse, hypertension. SURGICAL HISTORY: Left rotator cuff repair, breast implants, tummy tuck. FAMILY HISTORY: The patient's brother had a heart attack and CHF. SOCIAL HISTORY: Noncontributory. HOSPITAL COURSE: A 59-year-old female, who admits with a kidney stone. She has had several since June of this year. The pain has continued to worsen over the last few days, so she came to the ER. CT of the abdomen and pelvis showed a 6 to 7 mm obstructing calculus in the right UVJ, resulting in moderate right hydroureter and marked right hydronephrosis, bilateral nonobstructing calculi. The patient's WBC went down after getting Rocephin. The urine culture was negative. Followup KUB showed 6 mm density in the right pelvis, likely corresponds with the UVJ calculus, 3 mm left lower pole renal calculi. The patient was taken to the OR for cystoscopy with possible stent and lithotripsy per Urology recommendation. The patient can discharge home. She will follow up with primary care and Urology in 1 to 2 weeks. The patient understands discharge instructions and agrees to plan. Dictated by Claribel Wiley NP Chester Palacios MD JANELLE/MODL /[id number]
--- OUTSIDE RECORDS SUMMARY | 2020-01-07 19:33 | XMS REPORT | Continuity of Care Document ---
Author Author [facility] t Organization [facility] Address [address] [place] [address] Phone Unavailable Care Team Providers Care Rn Occupational Health Name Role Phone MD TIAGO DEENA PCP KASH CHAVEZ Attshitals Unavailable KASH CHAVEZ Admsimin Unavailable Payers Payer Name Policy Type Policy Number Effective Date Expiration Date S chucho [employer] Ppo [id number] [facility] Cdc Review Covid19 [id number] [facility] Problems Condition Name Condition Details Condition Category Status Onset Date Resolution Date Last Treatment Date Treating Clinician Comments Source Urinary tract infection Problem Active [facility] Calculus of ureter Problem Active [facility] Hydronephrosis Problem Active [facility] Allergies, Adverse Reactions, Alerts This patient has no known allergies or adverse reactions. Social History Social Habit Start Date Stop Date Quantity Comments Source Sex Assigned At 1960 00:00:00 1960 00:[birth year]:00 Female [facility] Medications Ordered Medication Name Filled Medication Name Start Date Stop Da te Current Medication? Ordering Clinician Indication Dosage Frequency Signature (SIG) Comments Components Source Acetaminophen With Codeine (Tylenol With Codeine #3 Ta blet) 1 Each TABLET Acetaminophen With Codeine (Tylenol With Codeine #3 Tablet) 1 Each TABLET Yes 1 Every 4 Hours as needed for Moderate Eulalio n (4-6) [facility] Alprazolam Alprazolam Yes .5 Three Time s A Day as needed for Anxiety [facility] Cholestacare Cholestacare Yes 1 Three Times Da karma With Meals [facility] Cider Vinegar (Apple Cider Vinegar) 300 Mg TABLET Cide r Vinegar (Apple Cider Vinegar) 300 Mg TABLET Yes 1 Bedtime [facility] Famotidine (Pepcid Ac) 10 Mg TABLET Famotidine (Pepcid Ac) 10 Mg TABL ET Yes 10 Daily [facility] Multivitamin (Multivitamins) 1 Each CAPSULE Multivitam in (Multivitamins) 1 Each CAPSULE Yes [address] [facility] Ondansetron Hcl (Zofran*) 4 Mg TABLET Ondansetron Hcl (Zofran*) 4 M g TABLET Yes 4 Every 6 Hours as needed for Nausea [facility] Sertraline Hcl Sertraline Hcl Yes 25 Daily [facility] Vital Signs Vital Name Observation Time Observation Value Comments Source Body Temperature 2019-11-27 12:00:00 98.0 [degF] [facility] Weight 2019-11-24 01:00:00 131 [lb_av] [facility] BMI (Body Mass Index) 2019-11-24 01:00:00 22.5 kg/m2 [facility] Procedures Procedure Date / Time Performed Performing Clinician [facility] e CT of abdomen and pelvis without contrast 2019-11-23 00:00:00 [facility] Plan of Care Planned Activity Planned Date Details Comments Source Instructions Kidney Stones [facility] Results Test Description Test Time Test Comments Results Result Comments Source Blood leukocytes automated count (number/volume) 2019-11-27 06:00:00 Test Item White Blood Count (test code = 6690-2) 4.97 4.8-10.8 [facility] erythrocytes automated count (number/volume)2019-11-27 06:00:00* Test Item Value Reference Range Interpretation Comments Red Blood Count (test code = 789-8) 3.60 3.6-5.1 [facility] hemoglobin measurement (moles/volume)2019-11-27 06:00:00* Test Item Value Reference Range Interpretation Comments Hemoglobin (test code = 60653-4) 10.7 12.0-16.0 [facility]landAutomated blood hematocrit (volume fraction)2019-11-27 06:00:00* Test Item Value Reference Range Interpretation Comments Hematocrit (test code = 4544-3) 32.3 34.2-44.1 [facility]landAutomated erythrocyte mean corpuscular mfbbii8269-19-19 06:00:00* Test Item Value Reference Range Interpretation Comments Mean Corpuscular Volume (test code = 787-2) 89.7 81-99 [facility]landAutomated erythrocyte mean corpuscular hemoglobin (mass per erythrocyte)2019-11-27 06:00:00* Test Item Value Reference Range Interpretation Comments Mean Corpuscular Hemoglobin (test code = 785-6) 29.7 28-32 [facility] erythrocyte mean corpuscular hemoglobin concentration measurement (mass/volume)2019-11-27 06:00:00* Test Item Value Reference Range Interpretation Comments Mean Corpuscular Hemoglobin Concent (test code = 786-4) 33.1 31-35 [facility]landRDW JitJs-Per9494-96-19 06:00:00* Test Item Value Reference Range Interpretation Comments Red Cell Distribution Width (test code = 25184-8) 11.9 11.7 -14.4 [facility] blood platelet count (count/volume)2019-11-27 06:00:00* Test Item Value Reference Range Interpretation Comments Platelet Count (test code = 777-3) 176 140-360 [facility]landAutomated blood segmented neutrophil count as percentage of total enzazxoqsd8446-11-82 06:00:00* Test Item Value Reference Range Interpretation Comments Neutrophils (%) (Auto) (test code = 30388-9) 55.2 38.7-80.0 [facility]landAutomated blood lymphocyte count as percentage ot total kdtifeigjr1630-23-00 06:00:00* Test Item Value Reference Range Interpretation Comments Lymphocytes (%) (Auto) (test code = 736-9) 35.2 18.0-39.1 [facility]landAutomated blood monocyte count as percentage of total glusgcywcj9731-49-72 06:00:00* Test Item Value Reference Range Interpretation Comments Monocytes (%) (Auto) (test code = 5905-5) 7.6 4.4-11.3 [facility]landAutomated blood eosinophil count as percentage of total atjrgypxub8761-31-31 06:00:00* Test Item Value Reference Range Interpretation Comments Eosinophils (%) (Auto) (test code = 713-8) 1.4 0.0-6.0 [facility]landAutomated blood basophil count as percentage of total lfiilfrtiu6411-88-97 06:00:00* Test Item Value Reference Range Interpretation Comments Basophils (%) (Auto) (test code = 706-2) 0.4 0.0-1.0 [facility] PearlandFluoroscopic procedure less than one hour gcjlhdoy9328-18-62 06:00:00* Test Item Value Reference Range Interpretation Comments IM GRANULOCYTES % (test code = IM GRANULOCYTES %) 0.2 0.0- 1.0 [facility]landAutomated blood neutrophil count 2019-11-27 06:00:00* Test Item Value Reference Range Interpretation Comments Neutrophils # (Auto) (test code = 751-8) 2.7 2.1-6.9 [facility]landBlood lymphocytes count (number/volume) 2019-11-27 06:00:00* Test Item Value Reference Range Interpretation Comments Lymphocytes # (Auto) (test code = 20160-5) 1.8 1.0-3.2 [facility]landBlood monocytes automated count (number/volume)2019-11-27 06:00:00* Test Item Value Reference Range Interpretation Comments Monocytes # (Auto) (test code = 742-7) 0.4 0.2-0.8 [facility]landAutomated blood eosinophil count 2019-11-27 06:00:00* Test Item Value Reference Range Interpretation Comments Eosinophils # (Auto) (test code = 711-2) 0.1 0.0-0.4 [facility]landAutomated blood basophil count (count/volume)2019-11-27 06:00:00* Test Item Value Reference Range Interpretation Comments Basophils # (Auto) (test code = 704-7) 0.0 0.0-0.1 [facility] PearlandFluoroscopic procedure less than one hour rrockobc9367-35-42 06:00:00* Test Item Value Reference Range Interpretation Comments Absolute Immature Granulocyte (auto (theresa t code = Absolute Immature Granulocyte (auto) 0.01 0-0.1 [facility] sodium measurement (moles/volume)2019-11-27 06:00:00* Test Item Value Reference Range Interpretation Comments Sodium Level (test code = 2951-2) 142 136-145 [facility] or plasma potassium measurement (moles/volume)2019-11-27 06:00:00* Test Item Value Reference Range Interpretation Comments Potassium Level (test code = 2823-3) 3.8 3.5-5.1 [facility] or plasma chloride measurement (moles/volume)2019-11-27 06:00:00* Test Item Value Reference Range Interpretation Comments Chloride Level (test code = 2075-0) 108 98-107 [facility]um or plasma carbon dioxide, total measurement (moles/volume)2019-11-27 06:00:00* Test Item Value Reference Range Interpretation Comments Carbon Dioxide Level (test code = 2028-9) 28 22-29 [facility] Marshall[facility]um or plasma anion ktd0314-05-70 06:00:00* Test Item Value Reference Range Interpretation Comments Anion Gap (test code = 10136-4) 9.8 8-16 [facility] or plasma urea nitrogen measurement (mass/volume)2019-11-27 06:00:00* Test Item Value Reference Range Interpretation Comments Blood Urea Nitrogen (test code = 3094-0) 9 7-26 [facility] or plasma creatinine measurement (mass/volume)2019-11-27 06:00:00* Test Item Value Reference Range Interpretation Comments Creatinine (test code = 2160-0) 0.70 0.57-1.11 [facility] or plasma urea nitrogen/creatinine mass pskmj3319-77-51 06:00:00* Test Item Value Reference Range Interpretation Comments BUN/Creatinine Ratio (test code = 3097-3) 13 6-25 [facility]landEstimated glomerular filtration rate (GFR) efepemuocclkj6632-49-00 06:00:00* Test Item Value Reference Range Interpretation Comments Estimat Glomerular Filtration Rate (test code = 556453755) > 60 >60 Ranges were taken from the National Kidney Disease Education Program and the [facility] Kidney Foundation literature.Reference ranges:60 or greater: Bobitt96-64 ( for 3 consecutive months): Chronic kidney disease 15 or less: Kidney failureHCA [facility] Healthcare PearlandGlucose cbdakovudrc3758-83-44 06:00:00* Test Item Value Reference Range Interpretation Comments Glucose Level (test code = CTJ5566) 96 74-118 [facility] or plasma calcium measurement (mass/volume)2019-11-27 06:00:00* Test Item Value Reference Range Interpretation Comments Calcium Level (test code = 58621-8) 8.6 8.4-10.2 [facility] or plasma magnesium measurement (mass/volume)2019-11-27 06:00:00* Test Item Value Reference Range Interpretation Comments Magnesium Level (test code = 56749-1) 1.9 1.3-2.1 [facility] or plasma total bilirubin measurement (mass/volume)2019-11-27 06:00:00* Test Item Value Reference Range Interpretation Comments Total Bilirubin (test code = 1975-2) 0.3 0.2-1.2 [facility]landFluoroscopic procedure less than one hour houuvbnu2408-90-19 06:00:00* Test Item Value Reference Range Interpretation Comments Aspartate Amino Transf (AST/SGOT) (test code = Aspartate Amino Transf (AST/SGOT)) 13 5-34 [facility] or plasma alanine aminotransferase measurement (enzymatic activity/volume)2019-11-27 06:00:00* Test Item Value Reference Range Interpretation Comments Alanine Aminotransferase (ALT/SGPT) (test code = 1742-6) 14 0-55 [facility] Marshaller[facility] or plasma protein measurement (mass/volume)2019-11-27 06:00:00* Test Item Value Reference Range Interpretation Comments Total Protein (test code = 2885-2) 6.7 6.5-8.1 [facility] or plasma albumin measurement (mass/volume)2019-11-27 06:00:00* Test Item Value Reference Range Interpretation Comments Albumin (test code = 1751-7) 3.7 3.5-5.0 [facility]landPlasma globulin measurement (mass/volume) 2019-11-27 06:00:00* Test Item Value Reference Range Interpretation Comments Globulin (test code = 73736-1) 3.0 2.3-3.5 [facility] or plasma albumin/globulin mass fnzfd9175-76-71 06:00:00* Test Item Value Reference Range Interpretation Comments Albumin/Globulin Ratio (test code = 1759-0) 1.2 0.8-2.0 [facility] or plasma alkaline phosphatase measurement (enzymatic activity/volume)2019-11-27 06:00:00* Test Item Value Reference Range Interpretation Comments Alkaline Phosphatase (test code = 6768-6) 52 40-150 [facility] 08[facility]41:00 [facility] [address] [place] [address] Patient Name: TYLOR PIERRE MR #: [id number] : 1960 Age/Sex: 59/F Req #: [id number] Adm Physician: KASH CHAVEZ MD Ordered by: DEENA ORDOÑEZ MD Report #: [id number] Location: MED/SURG Room/Bed: [facility] Procedure: [id number] DX/ABDOMEN-1VIEW (KUB) Exam Date: 11/26/19 Exam Time: 0800 REPORT STATUS: Signed EXAMINATION: ABDOME N-1VIEW (KUB) INDICATION: Renal calculi COMPARISON: CT abdomen and pelvis 11/23/2019 FINDINGS: Left lower pole renal calculi measur e up to 3 mm. 6 mm calcific density in the right pelvis likely corresponds wit h the ureterovesical junction calculus seen on the CT of 11/23/2019. The 2 mm r ight renal calculus seen on the CT is not well visualized on this KUB. Nonobst ructive bowel gas pattern. No free air. No acute osseous injury. IMPRESSI ON: 6 mm calcific density in the right pelvis likely corresponds with the u reterovesical junction calculus seen on the prior CT. 3 mm left lower pole renal calculi. Signed by: Hannah Godoy MD on 11/26/2019 11:53 AM Dicta marisol By: HANNAH GODOY MD 1153 Transcribed By: ABA on 11/26/19 1153 COPY TO: DEENA ORDOÑEZ MD Fluoroscopic procedure less than one hour bnhcjyeb8103-80-28 05:10:00* Test Item Value Reference Range Interpretation Comments Hemoglobin A1c Percent (test code = Hemoglobin A1c Percent) 5.1 4.0-7.0 [facility]landPhosphorus vbbejxqqlqu0121-72-93 05:10:00 * Test Item Value Reference Range Interpretation Comments Phosphorus Level (test code = DUC1917) 2.4 2.3-4.7 [facility] triglyceride measurement (mass/volume)2019-11-25 05:10:00* Test Item Value Reference Range Interpretation Comments Triglycerides Level (test code = 2571-8) 93 0-149 [facility] or plasma cholesterol measurement (mass/volume)2019-11-25 05:10:00* Test Item Value Reference Range Interpretation Comments Cholesterol Level (test code = 2093-3) 227 0-199 Less than 200 mg/dL Low Icar422 - 239 mg/dL Borderline Ovtc301 m g/dl and greater High Risk [facility] or plasma cholesterol in LDL measurement (mass/volume) 2019-11-25 05:10:00* Test Item Value Reference Range Interpretation Comments LDL Cholesterol (test code = 2089-1) 160 60-130 [facility] or plasma cholesterol in HDL measurement (mass/volume)2019-11-25 05:10:00* Test Item Value Reference Range Interpretation Comments HDL Cholesterol (test code = 2085-9) 48 40-60 [facility] or plasma total cholesterol/cholesterol in HDL mass cytdf1226-02-30 05:10:00* Test Item Value Reference Range Interpretation Comments Cholesterol/HDL Ratio (test code = 9830-1) 4.7 3.0-3.6 [facility] or plasma thyrotropin measurement by detection limit <= 0.005 miu/l (units/volume)2019-11-25 05:10:00* Test Item Value Reference Range Interpretation Comments Thyroid Stimulating Hormone (TSH) (test code = 99100-9) 3.982 0.350-4.940 [facility]landFluoroscopic procedure less than one hour iuzoymyg7095-12-75 02:06:00* Test Item Value Reference Range Interpretation Comments Coronavirus (PCR) (test code = Coronavirus (PCR)) NOT DETECTED NOTD ETECTED SARS-COV-2 (COVID19), HIGHRISK, RT-PCRNegative results do not preclude SARS-CoV- 2 infection and should not be used as the sole basis for patient management deci sions. Negative results must be combined with clinical observations, patient his tory, and epidemiological information. Optimum specimen types and timing for pea k viral levels during infections caused by SARS-CoV-2 have not been determined. Collection of multiple specimens ot types of specimens may be necessary to detec t virus. Improper specimen collection and handling, sequence variability under p rimers/probes, or organism present below the limit of detection may lead to fals e negative results. Positive and negative predictive values of testing are highl y dependent on prevalance. False negative test results are more likely when prev alence is high.The expected result is negative (not detected).The SARS-CoV-2 theresa t is intended for the qualitative detection of nucleic acid from SARS-CoV-2 in n asopharyngeal and oropharyngeal swab samples from patients who meet COVID-19 cli nical and or epidemiological criteria. For lower respiratory tract specimens, th e assay is submitted for authoriztion by FDA under an Emergency Use Authorizatio n (EUA). Testing methodology is real time RT-PCR. If received as separate collec tion devices, nasopharygeal and oropharyngeal specimens are combined for analysi s. Additional specimens may be split to a separate accession for analysi and rep orting as this test includes a single unit of service.Test results must be corre lated with clinical presentation and evaluated in the context of other laborator y and epidemiologic data. Test performance can be affected because the epidemiol ogy and clinical spectrum of infection caused by SARS-CoV-2 is not fully known. For example, the optimum types of specimens to collect and when during the cours e of infection these specimens are most likely to contain detectable viral RNA m ay not be known.This test has not been Food and Drug Administration (FDA) cleare d or approved and has been authorized by FDA under an Emergency Use Authorizatio n (EUA). The test is only authorized for the duration of the declaration that ci rcumstances exist justifying the authorization of emergency use of in vitro diag nostic tests for detection and/or diagnosis of SARS-CoV-2 under section 564(b) o f the Act, 21 U.S.C. section 360bbb-3(b)(1), unless the authorization is termina marisol or revoked sooner. [facility] are certified under the C linical Laboratory Improvement Amendments of 1988 (CLIA), 42 U.S.C. section 263a , to perform high complexity tests.Testing performed by [facility] [id number] [place], [place] [id number] Director: Young Reese M.D.CLIA # [id number] [facility]PELVIS [id number] 20:51:00 [place] [address] Patient Name: TYLOR PIERRE MR #: [id number] : 1960 Age/Sex: 59/F Req #: [id number] Adm Physician: KASH CHAVEZ MD Ordered by: LISETTE CALDWELL MD Report #: [id number] Location: MED/SURG Room/Bed: [facility] Procedure: [id number] CT/CT A BDOMEN/PELVIS WO Exam Date: 11/23/19 Exam Time: 2028 REPORT STATUS: Signed EXAMINATI ON: CT of the abdomen and pelvis without contrast. TECHNIQUE: Spiral CT im ages of the abdomen and pelvis were performed from the lung bases to the lesse r trochanters. No intravenous contrast was given per renal stone protocol. C oronal and sagittal reformatted images were obtained. COMPARISON: None. CLINICAL HISTORY:Bilateral kidney stones, right flank pain for several months DISCUSSION: ABSENCE OF INTRAVENOUS CONTRAST DECREASES SENSITIVITY FOR DETECTION OF FOCAL LESIONS AND VASCULAR PATHOLOGY. ABDOMEN/PELVIS: LOWER THORAX: Lung bases are clear. Bilateral breast implants are partially vi sualized. HEPATOBILIARY: 7 mm fluid density simple cyst in hepatic segment VIII at the dome (series 3, image 12). 9 mm fluid density simple cyst in he patic segment (series 3, image 43). No intra or extrahepatic biliary ducta l dilation. GALLBLADDER: No radio-opaque stones or sludge. No wall thicken ing. SPLEEN: No splenomegaly. PANCREAS: No focal masses or ductal dila tation. ADRENALS: No adrenal nodules. KIDNEYS/URETERS: 6-7 mm obstruct ing calculus in the right UVJ (series 3, image 142), results in moderate right hydroureter, mild periureteral stranding, marked right hydronephrosis and ass ociated mild perinephric stranding. Punctate nonobstructing calculus in the ri ght inferior pole (series 3, image 57). 3-4 mm nonobstructing calculi in the left inferior pole (series 3, image 59). No left ureteral calculi, hydronephr osis or obstruction. No contour abnormalities. PELVIC ORGANS/BLADDER: No bladder calculi or focal lesions. The uterus is unremarkable. No adnexal saad s. PERITONEUM/RETROPERITONEUM: No free air or fluid. LYMPH NODES: No i ntra-abdominal,retroperitoneal, pelvic or inguinal lymphadenopathy. VESSE LS: Atherosclerotic calcification of the distal abdominal aorta. GI TRACT: No bowel dilation or evidence of obstruction. No pericolonic inflammatory mckeon ges. Appendix is well identified and normal in caliber. Stomach is unremarkabl e. BONES AND SOFT TISSUES: No aggressive lytic or suspicious focal scleroti c lesions. 5 mm nonaggressive-appearing focal sclerotic lesion in the right acetabulum (series 3, image 129), likely represents a bone island. Soft tissues are grossly unremarkable. IMPRESSION: 1.6-7 mm obstructing calculus in the right UVJ (series 3, image 142), results in moderate right hydroureter , mild periureteral stranding, marked right hydronephrosis and associated mild perinephric stranding. 2. Bilateral nonobstructing calculi, as described. 3. Simple hepatic cysts, which require no further follow-up. Signed by : Dr. Emil Rubi M.D. on 11/23/2019 8:57 PM Dictated By: EMIL AYALA MD 56 Transcri bed By: ABA on 11/23/192056 COPY TO: LISETTE CALDWELL MD Prothrombin time (PT) in platelet poor plasma by coagulation [id number] 18:44:00* Test Item Value Reference Range Interpretation Comments Prothrombin Time (test code = 5902-2) 12.9 11.9-14.5 [facility]IN[facility] in Platelet poor plasma by Coagulation [id number] 18:44:00* Test Item Value Reference Range Interpretation Comments Prothromb Time International Ratio (test code = 6301-6) 0.92 Oral Anticoagulant Therapy INR Values:1. Low Intensity Therapy 1.5 - 2.02 . Moderate Intensity Therapy 2.0 - 3.03. High Intensity Therapy(1) 2.5 - 3. 54. High Intensity Therapy(2) 3.0 - 4.05. Panic Value INR > 5.0 [facility]landActivated partial thromboplastin time (aPTT) in platelet poor plasma by coagulation siyaw0028-61-29 18:44:00* Test Item Value Reference Range Interpretation Comments Activated Partial Thromboplast Time (test code = 08981-1) 25.2 23.8-35.5 [facility]landUrine color durodfwmfslos4811-76-93 18:44:00* Test Item Value Reference Range Interpretation Comments Urine Color (test code = 5778-6) YELLOW YELLOW [facility] PearlandUrine rmaljnu2109-18-78 18:44:00* Test Item Value Reference Range Interpretation Comments Urine Clarity (test code = 15183-7) SL CLOUDY CLEAR [facility] gravity of Urine by Test strip 2019-11-23 18:44:00* Test Item Value Reference Range Interpretation Comments Urine Specific [place] (test code = 5811-5) 1.025 1.010-1.02 5 [facility]landUrine pH measurement by automated test [id number] 18:44:00* Test Item Value Reference Range Interpretation Comments Urine pH (test code = 47085-6) 7.5 5-7 [facility]landUrine leukocyte esterase detection by xwjqqfwl0752-44-75 18:44:00* Test Item Value Reference Range Interpretation Comments Urine Leukocyte Esterase (test code = 5799-2) NEGATIVE NEGATIVE [facility]landUrine nitrite hcknbmdoj1598-16-13 18:44:00* Test Item Value Reference Range Interpretation Comments Urine Nitrite (test code = 66267-6) NEGATIVE NEGATIVE [facility]landUrine protein measurement by test strip (mass/volume)2019-11-23 18:44:00* Test Item Value Reference Range Interpretation Comments Urine Protein (test code = 5804-0) 1+ NEGATIVE [facility] glucose [id number] 18:44:00* Test Item Value Reference Range Interpretation Comments Urine Glucose (UA) (test code = 2349-9) NEGATIVE NEGATIVE [facility] ketones detection by automated test [id number] 18:44:00* Test Item Value Reference Range Interpretation Comments Urine Ketones (test code = 83255-7) 2+ NEGATIVE [facility] urobilinogen measurement by test strip (mass/volume)2019-11-23 18:44:00* Test Item Value Reference Range Interpretation Comments Urine Urobilinogen (test code = 29948-3) 0.2 0.2-1 [facility] total bilirubin measurement (mass/volume)2019-11-23 18:44:00* Test Item Value Reference Range Interpretation Comments Urine Bilirubin (test code = 1978-6) NEGATIVE NEGATIVE [facility] erythrocytes [id number] 18:44:00* Test Item Value Reference Range Interpretation Comments Urine Blood (test code = 69434-6) TRACE NEGATIVE [facility] urine sediment leukocyte count by microscopy (number/high power field)2019-11-23 18:44:00* Test Item Value Reference Range Interpretation Comments Urine WBC (test code = 5821-4) 11-20 0-5 [facility]landErythrocytes detection in urine sediment by light [id number] 18:44:00* Test Item Value Reference Range Interpretation Comments Urine RBC (test code = 48175-8) 6-10 0-5 [facility]landBacteria detection in urine sediment by light [id number] 18:44:00* Test Item Value Reference Range Interpretation Comments Urine Bacteria (test code = 90983-8) MANY NONE [facility]landEpithelial cells detection in urine sediment by light [id number] 18:44:00* Test Item Value Reference Range Interpretation Comments Urine Epithelial Cells (test code = 78427-8) FEW NONE [facility] or plasma creatine kinase measurement (enzymatic activity/volume)2019-11-23 18:44:00* Test Item Value Reference Range Interpretation Comments Creatine Kinase (test code = 2157-6) 74 29-168 [facility] or plasma creatine kinase MB measurement (mass/volume)2019-11-23 18:44:00* Test Item Value Reference Range Interpretation Comments Creatine Kinase MB (test code = 08827-6) 0.70 0-5.0 [facility]landTroponin I measurement by highly sensitive enzyme [id number] 18:44:00* Test Item Value Reference Range Interpretation Comments Troponin I (test code = 69675-1) 0.009 0-0.300 [facility]
--- NOTE | 2020-01-11 06:36 | Operative Report ---
DATE OF PROCEDURE: 11/27/2019 SURGEON: Ismael Jones MD PREOPERATIVE DIAGNOSES: 1. Right ureterolithiasis. 2. Microhematuria. 3. Urinary tract infections. POSTOPERATIVE DIAGNOSES: 1. Right ureterolithiasis. 2. Microhematuria. 3. Urinary tract infections. 4. Grade 1 cephalad cystocele. 5. Grade 2 rectocele. 6. Atrophic (senile) vaginitis. OPERATIONS PERFORMED: 1. Cystourethroscopy with bilateral ureteral catheterization and retrograde ureteropyelography (separate procedure performed for the microhematuria and urinary tract infections). 2. Interpretation of retrograde ureteropyelography. 3. Supervision of fluoroscopy, no radiologist present. 4. Right ureteroscopy with holmium laser lithotripsy, extraction of stones and placement of stents. 5. Urological Services for supervision and interpretation of ureteroscopy, no radiologist present. 6. Pelvic examination under anesthesia. ANESTHESIA: General. COMPLICATIONS: None. CLINICAL SUMMARY: Please refer to the hospital chart for details. In a nutshell, the patient failed to pass her stone and has had symptomatology, and is brought for the above procedures. She is aware of the risks of bleeding, infection, adjacent structures, the definite need for additional procedures and she elected to proceed. PROCEDURE IN DETAIL: Informed consent was verified. Shahida Harding was properly identified, taken to the operating room, placed on the cystoscopy table in supine position. Anesthesia was uneventfully begun. The patient was then carefully and gently repositioned in the dorsal lithotomy position with all pressure points well padded. Her genitalia were prepared and draped in usual sterile fashion. The cystoscope sheath with obturator in place was atraumatically inserted in the patient's urethra. The bladder was drained. Panendoscopy of the urinary bladder revealed no suspicious lesions, no tumors, no stones, and no diverticula. Normally positioned and configured ureteral orifices were identified. Ureteral catheter was used to cannulate the left ureter and retrograde ureteropyelograms were performed. It was then inserted in the right ureter. Retrograde ureteral pyelogram was performed. A guidewire into the right ureter and guided to the level of the patient's kidney. Semi-rigid ureteroscope was then placed alongside the guidewire into the distal ureter. We identified a large stone. Holmium laser lithotripsy was performed to vaporize this pulverized the stone the most small fragment. The stone fragments were extracted atraumatically with a basket. We then placed with cystoscopic fluoroscopic guidance, placed the lower right-sided indwelling ureteral stent. Coiled the patient's kidneys as well as the patient's bladder. The retaining suture was cut short. Interpretation of retrograde ureteropyelography instilled in retrograde fashion bilaterally. The left side exhibited a small filling defect corresponding to the stone. There was no hydronephrosis and unobstructed drainage was observed. The right side exhibited severe hydroureteronephrosis with a very dilated renal pelvis. The stent was in good position coiled the patient's kidney as well as the patient's bladder at the end of the case. The patient's bladder was drained. Cystoscope was withdrawn. Pelvic examination revealed a grade 1 cystocele of this portion of the anterior vaginal wall. There was a grade 4 rectocele that was atrophic (senile) vaginitis, but no abnormal palpable pelvic masses could be appreciated. There were no obvious mucosal lesions, which they were noted. The patient was then uneventfully reversed from anesthesia and taken to the recovery room in stable condition. There were no complications to the procedure. She tolerated the procedure well. Plans will be to return the patient to the operating room in several weeks. They are to perform a left ESWL concomitantly, we will perform a right ureteroscopy following removal of her stent and hopefully, we plan on leaving her stent free and stone free on the right-hand side. Ismael Jones MD [place]/[facility] /[id number]
== END 2019-11-27 20:00 | disposition home or self-care (01) | DRG 661 ==
LOC: ER 18:24 → ERHOLD 23:50 → MED/SURG 11-24 00:38
PROVIDERS: ADMIT Internal Medicine; ATTEND Internal Medicine
PROC: BT141ZZ Fluoroscopy of Kidneys, Ureters and Bladder using Low Osmolar Contrast (ICD-10-PCS; 2019-11-27)
PROC: 0T788DZ Dilation of Bilateral Ureters with Intraluminal Device, Via Natural or Artificial Opening Endoscopic (ICD-10-PCS; principal; 2019-11-27 15:30)
PROC: 0TC68ZZ Extirpation of Matter from Right Ureter, Via Natural or Artificial Opening Endoscopic (ICD-10-PCS; 2019-11-27 15:30)
DX: N13.6 Pyonephrosis (principal); F41.9 Anxiety disorder, unspecified; E78.5 Hyperlipidemia, unspecified; K21.9 Gastro-esophageal reflux disease without esophagitis; R00.1 Bradycardia, unspecified; N95.2 Postmenopausal atrophic vaginitis; N39.0 Urinary tract infection, site not specified; N81.10 Cystocele, unspecified; N81.6 Rectocele; R31.29 Other microscopic hematuria; D64.9 Anemia, unspecified; Z11.59 Encounter for screening for other viral diseases
CPT/HCPCS: 36415; 74018; 74176; 74420; 80048; 80053; 80061; 81001; 82550; 82553; 83036; 83735; 84100; 84443; 84484; 85025; 85610; 85730; 87086; 88300; 93005; 93306; 96361; 99284; C2617; J0360; J0692; J0696; J1100; J1170; J1885; J2001; J2250; J2405; J3010; J7030; U0002

== ENCOUNTER → 2020-02-16 | Day surgery (SDC) | payer BC, OTHER ==
--- NOTE | 2020-02-11 16:49 | Diagnostic Imaging Report ---
Abdomen, 1 view. History: Kidney stones. Findings: Air is scattered throughout nondilated small and large bowel. A right internal ureteral stent is present extending from the region of the right kidney to the bladder. 2 small 2 to 3 mm stones are projected over the lower pole of the left kidney. There are no visible right renal calculi. The osseous structures are intact. IMPRESSION: Small left renal calculi. Right internal ureteral stent is in place. Signed by: Subhash Moss on 02/11/2020 4:45 PM
[~2020-02-16] MED LIST: ALPRAZOLAM0.5 M1 PO; APPLE CIDER VI300 MG PO; B&O 60MG R/S 60 MG SUPP PR ONE; CEFTRIAXONE SOD 1 GM/NS 50 ML 50 ML IV ONE; DEXAMETHASONE SOD PHOS INJ 4 MG/ML VIAL ONE; FAMOTIDINE 20 MG/2 ML VIAL IV ONE; FENTANYL CITRATE/PF 100MCG/2 ML INJ ONE; GENTAMICIN 80MG/NS 100 ML 100 ML IV ONE; GLYCOPYRROLATE INJ 0.2 MG/ML VIAL ONE; IOPAMIDOL 300MG/ML 50ML INFUS..BTL IV ONE; LIDOCAINE HCL 2% LOCAL INJ 5 ML SDV VIAL INJ ONE; MIDAZOLAM HCL 2 MG/2 ML VIAL ONE; MULTIVITAMINS1 EAC7 PO; NEXIUM20 MG PO; ONDANSETRON HCL INJ 2MG/ML 2ML 2 MG/ML VIAL ONE; OXYBUTYNIN CHLOR5 MG PO; PEPCID AC10 MG PO; PROPOFOL IV EMULSION 10 MG/ML 20 ML VIAL ONE; SERTRALINE HCL50 MG PO; SEVOFLURANE INHAL SOLN 250 ML PEN BTL ONE; TYLENOL WITH C1 EACH PO; ZOFRAN4 MG PO; [UNRECOGNIZED DRUG - OTHER] PO
[2020-02-16 09:10] VITALS: BP 161/81
--- NOTE | 2020-03-11 05:00 | Operative Report ---
DATE OF PROCEDURE: 02/16/2020 SURGEON: Ismael Jones MD PREOPERATIVE DIAGNOSES: 1. Left nephrolithiasis. 2. Right nephrolithiasis. 3. Right indwelling ureteral stent. POSTOPERATIVE DIAGNOSES: 1. Left nephrolithiasis. 2. Right nephrolithiasis. 3. Right indwelling ureteral stent. 4. Grade 1 cystocele. 5. Grade 2 rectocele. 6. Atrophic (senile) vaginitis. OPERATIONS PERFORMED: Note; these were all staged procedures as part of multi-staged and multi-step process of managing the patient's urolithiasis. 1. Left-sided extracorporeal shock wave lithotripsy (separate procedure for the left-sided nephrolithiasis). 2. Cystourethroscopy with complicated removal of right indwelling ureteral stent (separate procedure performed for the diagnosis of the stent with a separate scope). 3. Right ureteroscopy with stone manipulation (separate procedure performed to manage the right residual nephrolithiasis). 4. Urological services with supervision and interpretation of ureteroscopy. 5. Interpretation of retrograde ureteropyelography. 6. Supervision of fluoroscopy, no radiologist present. 7. Pelvic examination under anesthesia. ANESTHESIA: General. COMPLICATIONS: None. CLINICAL SUMMARY: Shahida Harding is a 59-year-old woman with bilateral nephrolithiasis and indwelling ureteral stent. She was brought for management. She is aware of the risks of bleeding, infection, injury to adjacent structures, need for further procedures and elected to proceed. OPERATIVE PROCEDURE IN DETAIL: Informed consent was verified, Shahida Harding was properly identified and taken to the operating room, placed on the lithotripsy table in supine position. Anesthesia was uneventfully begun. The patient's left nephrolithiasis was localized with biplanar fluoroscopy. A total of 3000 shocks were delivered to the 5 mm lower calyceal stone. The patient was then carefully and gently repositioned in a dorsal lithotomy position with all pressure points well padded. Her genitalia were prepared and draped in usual sterile fashion. The cystoscope sheath with obturator in place was atraumatically inserted to the patient's urethra and bladder was drained. Panendoscopy revealed no suspicious mucosal lesions, no tumors, no stones. The stent was noted to be emerging in the right ureteral orifice and was not encrusted. A guidewire was then placed alongside the stent and guided to the level of the patient's kidney. The stent was then grasped completely, removed and discarded. A flexible ureteroscope was then brought up over the guidewire and guided to the level of the patient's kidney. Panendoscopy revealed Marc's plaques throughout. We identified a very small stone. We could not grasp the stone that was jagged in appearance that was able to be manipulated. We grasped the bladder stone with Nitinol tipless basket and extracted atraumatically, carefully examined the ureter, it exhibited no tumors, no stones, no suspicious lesions and no strictures. Interpretation of retrograde ureteropyelography contrast was instilled on the right-hand side. There was mild fullness of the right-sided collecting system, but there no filling defects and unobstructed. Unobstructed drainage was observed fluoroscopically. The patient's bladder was drained. Cystoscope was withdrawn. Pelvic examination revealed a grade 1 cystocele, grade 2 rectocele. There was atrophic (senile) vaginitis. The patient was then uneventfully reversed from anesthesia and taken to recovery room in stable condition. No complications to the procedure, she tolerated the procedure well. Plans will be to follow the patient up in the office in approximately a month at which point in time, we will follow up with the patient's metabolic stone workup. Ismael Jones MD [place]/[facility] /[id number]
== END | disposition home or self-care (01) ==
LOC: OR 05:20
PROVIDERS: ATTEND Urology
DX: N20.0 Calculus of kidney (principal); Z46.6 Encounter for fitting and adjustment of urinary device; N81.10 Cystocele, unspecified; N81.6 Rectocele; N13.30 Unspecified hydronephrosis; R39.14 Feeling of incomplete bladder emptying; N39.0 Urinary tract infection, site not specified; I10 Essential (primary) hypertension; E78.00 Pure hypercholesterolemia, unspecified; E78.5 Hyperlipidemia, unspecified; K44.9 Diaphragmatic hernia without obstruction or gangrene; N95.2 Postmenopausal atrophic vaginitis; F41.9 Anxiety disorder, unspecified; Z01.812 Encounter for preprocedural laboratory examination; Z01.818 Encounter for other preprocedural examination; Z11.59 Encounter for screening for other viral diseases; Z84.1 Family history of disorders of kidney and ureter
CPT/HCPCS: 50590; 52352; 74018; C1769; J0696; J1100; J1580; J2001; J2250; J2405; J2704; J3010; U0002